=== PATIENT | female | born 1975 | race Two or more races ===

== ENCOUNTER 2017-09-22 18:44 | Emergency (ER) | payer BC ==
[~2017-09-22] VITALS: Ht 172.7 cm; Wt 90.7 kg
[2017-09-22] MEDS ORDERED: HYDROCODONE/APAP 10/325MG 1 EA TABLET PO ONE (19:00)
[2017-09-22] MEDS ORDERED: TDAP [DIPH/PERTUSSIS/TET] 0.5 ML VIAL IM ONE ×2 (19:00→19:32)
[2017-09-22] MEDS ORDERED: AMOX/CLAVULANATE 875 MG TABLET PO ONE (19:00)
--- NOTE | 2017-09-22 19:21 | NUR ---
PT AMBULATORY TO ER BED 3. PT BIB SELF C/O DOG BITE TO L KNEE X 1 HR. PT PLACED ON DIRECTOR ENTERPRISE SYSTEMS. VSS/RESP EVEN UNLABORED/NAD NOTED/SKIN WARM AND DRY/DENIES N-V-D/AFEBRILE/AOX4. AWAITING MD MCKAY.
--- NOTE | 2017-09-22 19:30 | NUR ---
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 EMT AT BEDSIDE IRRIGATING LACERATION TO L KNEE.
[2017-09-22] MEDS ORDERED: HYDROCODONE/APAP 10/325MG 1 EA TABLET ONE (19:31)
[2017-09-22] MEDS ORDERED: AMOX/CLAVULANATE 875 MG TABLET ONE (19:32)
--- NOTE | 2017-09-22 20:17 | NUR ---
PLATE WORKER HELPER AT BEDSIDE FOR SUTURE.
--- NOTE | 2017-09-22 20:25 | NUR ---
EMT AT BEDSIDE TO APPLY DRESSING PER TOOL AND DIE ENGINEER ORDERS.
--- NOTE | 2017-09-22 20:44 | NUR ---
Patient discharged to home in stable condition. Written and verbal after care instructions given. Patient verbalizes understanding of instruction. Patient ambulatory with a steady gait.
[2017-09-22 20:45] VITALS: BP 128/74
== END 2017-09-22 20:46 | disposition home or self-care (01) ==
LOC: ER 18:47
DX: S81.052A Open bite, left knee, initial encounter (principal); Z23 Encounter for immunization; Z88.5 Allergy status to narcotic agent; Z90.710 Acquired absence of both cervix and uterus; W54.0XXA Bitten by dog, initial encounter; Y93.89 Activity, other specified; Y92.89 Other specified places as the place of occurrence of the external cause; Y99.8 Other external cause status
CPT/HCPCS: 12001; 73564; 90471; 90715; 99284; A4606; A6402; Z7610